=== PATIENT | female | born 1995 | race Caucasian/White ===

== ENCOUNTER 2017-05-13 00:52 | Emergency (ER) | payer SELFPAY ==
[~2017-05-13] VITALS: Ht 165.1 cm; Wt 89.5 kg
[2017-05-13 01:52] VITALS: Ht 165.1 cm; Wt 89.5 kg
== END 2017-05-13 03:30 | disposition left against medical advice (07) ==
LOC: FTE 00:52
DX: Z53.21 Procedure and treatment not carried out due to patient leaving prior to being seen by health care provider (principal)
CPT/HCPCS: 93005